=== PATIENT | male | born 1955 | race Caucasian/White ===

== ENCOUNTER 2018-05-29 11:37 | Emergency (ER) | payer BC ==
[~2018-05-29] VITALS: Ht 175.3 cm; Wt 102.2 kg
[~2018-05-29 11:37] MED LIST: PRINIVIL10 MG OR; RANITIDINE150 MG OR
[2018-05-29] MEDS ORDERED: AMLODIPINE5 MG PO (11:44)
[2018-05-29] MEDS ORDERED: ATENOLOL50 MG PO (11:45)
[2018-05-29] MEDS ORDERED: COLCHICINE0.6 M2 PO (12:52)
[2018-05-29] MEDS ORDERED: CEPHALEXIN500 M1 PO (12:52)
[2018-05-29 12:59] VITALS: BP 166/89
== END 2018-05-29 12:58 | disposition home or self-care (01) | DRG 556 ==
LOC: ED 11:37
DX: M79.674 Pain in right toe(s) (principal); B35.1 Tinea unguium; I10 Essential (primary) hypertension; K21.9 Gastro-esophageal reflux disease without esophagitis

== ENCOUNTER 2019-04-28 06:24 | Day surgery (SDC) | payer BC ==
[~2019-04-28] VITALS: Ht 175.3 cm; Wt 104.3 kg
[~2019-04-28 06:24] MED LIST changes: +AMLODIPINE5 MG PO; +ATENOLOL50 MG PO; +CEPHALEXIN500 M1 PO; +COLCHICINE0.6 M2 PO
[2019-04-28 09:16] VITALS: BP 158/70
== END 2019-04-28 09:10 | disposition home or self-care (01) | DRG 392 ==
LOC: ORM 06:24
PROVIDERS: ATTEND Surgery
PROC: 0DBM8ZX Excision of Descending Colon, Via Natural or Artificial Opening Endoscopic, Diagnostic (ICD-10-PCS; principal; 2019-04-28)
DX: K57.30 Diverticulosis of large intestine without perforation or abscess without bleeding (principal); K63.3 Ulcer of intestine; I10 Essential (primary) hypertension; Z80.0 Family history of malignant neoplasm of digestive organs